=== PATIENT | female | born 1995 | race Two or more races ===

== ENCOUNTER 2024-05-18 11:32 | Emergency (ER) | payer SELFPAY ==
[~2024-05-18] VITALS: Ht 152.4 cm; Wt 65.9 kg
[2024-05-18 12:48] VITALS: BP 115/69; PULSE 70; RESP 16; TEMP 98; O2SAT 99
[2024-05-18] MEDS ORDERED: METH4PAK PO (13:09)
[2024-05-18] MEDS ORDERED: MELO7.5T7 PO (13:09)
[2024-05-18] MEDS: DexAMETHasone SOD PHOS 10MG/1ML VIAL INJ IM ONE (13:25)
[2024-05-18] MEDS: KETOROLAC TROMETH 60MG/2ML VIAL IM ONE (13:25)
== END 2024-05-18 13:43 | disposition home or self-care (01) ==
LOC: ER 11:32
DX: M54.12 Radiculopathy, cervical region (principal)
CPT/HCPCS: 96372; 99284; J1100; J1885

== ENCOUNTER 2025-06-09 14:47 | Outpatient (CLI) | payer OTHER ==
[~2025-06-09 14:47] MED LIST: MELO7.5T7 PO; METH4PAK PO
== END 2025-06-10 17:00 | disposition home or self-care (01) ==
LOC: LAB 14:47
PROVIDERS: ATTEND Obstetrics & Gynecology
DX: Z34.01 Encounter for supervision of normal first pregnancy, first trimester (principal); Z3A.00 Weeks of gestation of pregnancy not specified
CPT/HCPCS: 36415; 84144; 84702